=== PATIENT | female | born 1970 | race Caucasian/White ===

== ENCOUNTER 2016-08-04 06:18 | Day surgery (SDC) | payer BC ==
[~2016-08-04] VITALS: Ht 165.1 cm; Wt 65.8 kg
[~2016-08-04 06:18] MED LIST: BENICAR20 MG PO; CARAFATE1 G PO; CELEXA10 MG PO; CELEXA40 MG PO; CIPRO500 MG PO; COZAAR100 MG PO; CYCLOBENZAPRINE10 MG PO; DYAZIDE 37.5/251 CAP PO; HYDROCHLOROTHIA25 MG GT; HYDROCODONE-APA1 TAB PO; ISOSORBIDE DINI30 MG PO; KLOR-CON 1010 MEQ PO; PRAVASTATIN SOD10 MG PO; PROAIR HFA8.5 GM INH; PROTONIX40 MG PO; SKELAXIN800 MG PO; SPRINTEC1 TAB PO; TRIAMTERENE-HCT1 TA1 PO; VALIUM10 MG PO; XANAX1 MG PO; ZANTAC150 MG PO
[2016-08-04 07:28] LABS: HEMATOCRIT 47.3 % (36.0-48.0); HEMOGLOBIN 16.1 g/dL (12-16); MCH 33.6 pg (26.0-34.0); MCV 98.7 fL (80.0-100.0); MEAN PLATELET VOLUME 11.2 fL (7.4-10.4); RBC 4.79 10x6/uL (4.00-5.40); WBC 10.2 10x3/uL (4.8-10.8)
[2016-08-04 07:37] LABS: CALCIUM 9.1 mg/dL (8.5-10.1); CARBON DIOXIDE 28.2 mmol/L (21.0-32.0); CREATININE - SERUM 0.9 mg/dL (0.6-1.3); POTASSIUM - SERUM 3.2 mmol/L (3.5-5.1)
[2016-08-04 07:54] VITALS: BP 92/65; Ht 165.1 cm; Wt 65.8 kg
--- NOTE | 2016-08-04 12:39 | NUR ---
THE PATIENT IS SLURRING SPEECH WHEN AWAKENED
--- NOTE | 2016-09-08 10:18 | HP ---
PATIENT: OMI ELIAS MEDICAL RECORD: [id number] ACCOUNT: [id number] LOCATION:[facility] : 68 ADMISSION DATE: 08/04/16 HISTORY AND PHYSICAL EXAMINATION PREOPERATIVE DIAGNOSIS: Biliary dyskinesia. I am going to plan for laparoscopic cholecystectomy, intraoperative cholangiography with possible liver biopsy. The risks, possible complications and alternatives to the procedure were explained to the patient. She elects to proceed. PAST MEDICAL HISTORY AND PAST SURGICAL HISTORY: Tubal ligation, hysterectomy, appendectomy, bilateral carpal tunnel releases, gastroesophageal reflux which is controlled with medications, hypertension, and asthma. SOCIAL HISTORY: She is a smoker. I have advised her to quit smoking. ALLERGIES: MORPHINE, PENICILLIN, CIPRO, AND SULFA. HOME MEDICATIONS: [place], ProAir, Celexa, Valium, Cozaar, Protonix, potassium, Pravachol, Zantac, Carafate, and Maxzide. REVIEW OF SYSTEMS: As described above, otherwise negative. PHYSICAL EXAMINATION: GENERAL: The patient does not appear acutely ill. She does not appear chronically ill. VITAL SIGNS: Reviewed. HEAD: External ears appear normal. EYES: Extraocular movements are intact. NECK: Trachea is midline. CHEST: No intercostal retractions. PULMONARY: Nonlabored. No stridor. ABDOMEN: Right upper quadrant tenderness with guarding. No Walters sign. No Rovsing sign. EXTREMITIES: No peripheral cyanosis. INTEGUMENT: No rash, no ulcerations. PSYCHIATRIC: Normal affect. IMPRESSION: Biliary dyskinesia. PLAN: Laparoscopic cholecystectomy, intraoperative cholangiography, possible liver biopsy, possible open procedure. The risks, possible complications and alternatives to procedure were explained to the patient. This included the risk of bleeding requiring an emergency reoperation, infection, common ductal injury as well as an intestinal injury. TRANSINT:[id number] Voice Confirmation ID: [id number] DOCUMENT ID: [id number] HISTORY AND PHYSICAL [id number] OMI ELIAS ROBERT MD at 1018 CC: ROBERTO MARKHAM MD [id number] DICTATION DATE: 08/04/16 1221 VIRTUALIZATION ARCHITECT: 08/04/16 1247 [facility] 08/04/16 [place] [address]
== END 2016-08-04 15:10 | disposition home or self-care (01) ==
LOC: D.OPS 06:18 → D.PAN 08:00 → D.OPS 09:05 → D.PAN 09:05 → D.OPS 15:10
PROVIDERS: Anesthesiology
DX: K82.8 Other specified diseases of gallbladder (principal); K76.0 Fatty (change of) liver, not elsewhere classified; K21.9 Gastro-esophageal reflux disease without esophagitis; I10 Essential (primary) hypertension; J45.909 Unspecified asthma, uncomplicated; F17.200 Nicotine dependence, unspecified, uncomplicated; Z79.891 Long term (current) use of opiate analgesic; Z79.899 Other long term (current) drug therapy; Z88.1 Allergy status to other antibiotic agents; Z88.5 Allergy status to narcotic agent; Z88.0 Allergy status to penicillin; Z88.2 Allergy status to sulfonamides

== ENCOUNTER 2016-11-22 22:52 | Emergency (ER) | payer BC ==
[2016-08-04 07:54] VITALS: BMI 24.1
[2016-11-22 23:12] LABS: BASOPHILS 0.6 % (0-2); EOSINOPHILS 3.4 % (0-7); HEMATOCRIT 46.8 % (36.0-48.0); HEMOGLOBIN 16.3 g/dL (12-16); IMMATURE GRANULOCYTES 0.3 % (0-5); LYMPHOCYTES 43.8 % (15-50); MCH 34.1 pg (26.0-34.0); MCHC 34.8 g/dL (31.0-37.0); MCV 97.9 fL (80.0-100.0); MEAN PLATELET VOLUME 12.5 fL (7.4-10.4); MONOCYTES 4.6 % (2-11); NEUTROPHILS 47.3 % (40-80); PLATELET COUNT 346 10x3/uL (130-400); RBC 4.78 10x6/uL (4.00-5.40); RDW 13.1 % (11.5-14.5); WBC 11.5 10x3/uL (4.8-10.8)
[2016-11-22 23:22] LABS: ALBUMIN 3.3 g/dL (3.4-5.0); ANION GAP 10.5 mmol/L (8-16); BILIRUBIN - TOTAL 0.11 mg/dL (0.2-1.3); CALCIUM 9.1 mg/dL (8.5-10.1); CARBON DIOXIDE 29.7 mmol/L (21.0-32.0); CREATININE - SERUM 1.1 mg/dL (0.6-1.3); PROTEIN - SERUM 7.2 g/dL (6.4-8.2)
[2016-11-22 23:23] LABS: POTASSIUM - SERUM 3.2 mmol/L (3.5-5.1)
== END 2016-11-23 00:35 | disposition home or self-care (01) ==
LOC: D.ER 22:52
PROVIDERS: Emergency Medicine
DX: R53.1 Weakness (principal); E87.6 Hypokalemia; F32.9 Major depressive disorder, single episode, unspecified; M79.7 Fibromyalgia; K21.9 Gastro-esophageal reflux disease without esophagitis; I10 Essential (primary) hypertension; F17.200 Nicotine dependence, unspecified, uncomplicated

== ENCOUNTER 2016-12-09 12:35 | Inpatient (IN) | payer SELFPAY ==
[~2016-12-09] VITALS: Ht 165.1 cm; Wt 65.0 kg
--- NOTE | ~2016-12-09 | HP ---
PATIENT: OMI ELIAS MEDICAL RECORD: [id number] ACCOUNT: [id number] LOCATION:D.MS [id number] : 68 ADMISSION DATE: 12/10/16 HISTORY AND PHYSICAL EXAMINATION CHIEF COMPLAINT: "I need a port." HISTORY OF PRESENT ILLNESS: The patient needs subcutaneous port for vascular access. We discussed right-sided port versus left-sided ports. I am going to try to place on the left side, but the patient has a tattoo over there, I am going to try to avoid the tattoo. If we are unable to place on the left side, then we will proceed with placing on the right side. The patient underwent laparoscopic cholecystectomy and a liver biopsy by me. It revealed hemochromatosis. She has hereditary hemochromatosis and undergoes phlebotomies, which are therapeutic. Peripheral IVs are no longer obtainable. For that reason, I have been asked to place the port. PAST MEDICAL AND SURGICAL HISTORY: Laparoscopic cholecystectomy, tubal ligation, history of hysterectomy, appendectomy, carpal tunnel release, gastroesophageal reflux, hemochromatosis, asthma, hypertension. SOCIAL HISTORY: Smoker. I have advised the patient to quit smoking. ALLERGIES: PENICILLIN, MORPHINE, CIPRO. HOME MEDICATIONS: [place], Albuterol, Celexa, Flexeril, Valium, hydrochlorothiazide, Cozaar, Protonix, Zantac, Phenergan. PHYSICAL EXAMINATION: GENERAL: The patient does not appear acutely ill. She does not appear chronically ill. VITAL SIGNS: Reviewed. HEENT: Face is lewis. NECK: No stridor. Trachea is midline. CHEST: No intercostal retractions. PULMONARY: Nonlabored. No stridor. ABDOMEN: No peritonitis with movement. IMPRESSION: Hemochromatosis, in need of vascular access for phlebotomies, which are therapeutic phlebotomies. PLAN: Subcutaneous port and vascular catheter for venous access, left versus right. TRANSINT:[id number] Voice Confirmation ID: [id number] DOCUMENT ID: [id number] HISTORY AND PHYSICAL [id number] MOI ELIAS ROBERT MD CC: [id number] DICTATION DATE: 12/10/16 1207 EMERGENCY ROOM PHYSICIAN ASSISTANT: 12/10/16 1336 ADM IN [address] [place] [address]
--- NOTE | ~2016-12-09 | OP ---
PATIENT NAME: OMI ELIAS MEDICAL RECORD: [id number] :68 LOCATION:D.MS [id number] ADMISSION DATE:12/10/16 SURGEON: PIERCE PALACIOS MD DATE OF OPERATION: 12/10/2016 PREOPERATIVE DIAGNOSES: 1. Hemochromatosis, in need of IV access for therapeutic phlebotomy. 2. No significant peripheral IV access available. POSTOPERATIVE DIAGNOSES: 1. Hemochromatosis in need of IV access for therapeutic phlebotomy. 2. No significant peripheral IV access available. PROCEDURES: 1. Placement of left infraclavicular PowerPort under fluoroscopic guidance. 2. Immediate surgeon interpretation of the fluoroscopic images. SURGEON: Pierce Palacios MD GLASS BLOWER: None. BLOOD LOSS: Minimal. ANESTHESIA: General. COMPLICATIONS: None. The risks, possible complications and alternatives to the procedure were explained to the patient. She elects to proceed. The discussion specifically included, but was not limited to, bleeding requiring an emergency reoperation, infection, great vessel injury, pneumothorax. No radiologist was present for this procedure. Static fluoroscopic images were obtained and are kept in the PACS system. The surgeon interpretation of the radiographic images is dictated within the body of this operative note. OPERATIVE COURSE: The patient was conveyed to the operating room electively on 12/10/2016. General anesthesia was induced by the anesthesia staff. The left upper chest and left neck were sterilely prepped and draped. A transverse incision was accomplished in the left infraclavicular area above the patient's tattoo. I dissected down to the pectoralis muscle. A subcutaneous pocket was fashioned bluntly in a caudad direction. I then placed the patient in the Trendelenburg position. Under fluoroscopic guidance, I accessed the subclavian vein on the first try in an antegrade fashion. This was visualized under fluoroscopy. The guidewire was advanced. Over the guidewire, the dilator sheath was advanced. The dilator was removed. Through the sheath, the PowerPort catheter was advanced. It was advanced to the cavoatrial junction. The catheter was shortened. It was attached to the PowerPort. The locking device was firmly engaged. I had sutured the port down to the underlying pectoralis fascia with 3-point fixation utilizing 3-0 Prolenes. Further fluoroscopic images were obtained. One was obtained over the mediastinum and it revealed that the tip of the catheter was at the cavoatrial junction. Another fluoroscopic image was obtained over the left shoulder and it revealed there was no apparent kinking or OPERATIVE REPORT [id number] OMI ELIAS twisting of the catheter. There was no radiographic evidence of a complication. I irrigated in the port pocket. The port accessed easily. It flushed easily and aspirated dark, nonpulsatile blood. The subdermis was approximated with interrupted 3-0 Vicryls. The skin was approximated with a running intracuticular 4-0 Vicryl. Benzoin and Steri-Strips were applied. The patient was then extubated and conveyed to post-anesthesia care unit where she was in stable condition. They can begin using her PowerPort immediately. I will see the patient on a p.r.n. basis. TRANSINT:[id number] Voice Confirmation ID: [id number] DOCUMENT ID: [id number] PIERCE PALACIOS MD CC: RENNY WOOD MD, VERO FINNEGAN DO and PHILIP KNOTT MD [id number] DICTATION DATE: 12/10/16 162 WAREHOUSE PRODUCTION WORKER: 12/11/16 0014 DIS IN 12/10/16 [facility] [address] [place] [address]
[2016-12-09 14:22] LABS: BASOPHILS 0.4 % (0-2); EOSINOPHILS 0.4 % (0-7); HEMATOCRIT 54.6 % (36.0-48.0); HEMOGLOBIN 19.4 g/dL (12-16); IMMATURE GRANULOCYTES 0.3 % (0-5); LYMPHOCYTES 16.6 % (15-50); MCH 34.4 pg (26.0-34.0); MCHC 35.5 g/dL (31.0-37.0); MCV 96.8 fL (80.0-100.0); MEAN PLATELET VOLUME 11.5 fL (7.4-10.4); MONOCYTES 3.1 % (2-11); NEUTROPHILS 79.2 % (40-80); PLATELET COUNT 382 10x3/uL (130-400); RBC 5.64 10x6/uL (4.00-5.40); RDW 13.1 % (11.5-14.5); WBC 17.9 10x3/uL (4.8-10.8)
[2016-12-09 14:44] LABS: ANION GAP 14.3 mmol/L (8-16); BILIRUBIN - TOTAL 0.7 mg/dL (0.2-1.3); CALCIUM 10.2 mg/dL (8.5-10.1); CARBON DIOXIDE 28.3 mmol/L (21.0-32.0); CREATININE - SERUM 1.4 mg/dL (0.6-1.3); POTASSIUM - SERUM 3.6 mmol/L (3.5-5.1); PROTEIN - SERUM 8.2 g/dL (6.4-8.2)
[2016-12-09 16:56] LABS: APPEARANCE CLOUDY (CLEAR); BILIRUBIN NEGATIVE (NEGATIVE); COLOR DK YELLOW (YELLOW); GLUCOSE NEGATIVE (NEGATIVE); KETONE NEGATIVE (NEGATIVE); LEUKOCYTE ESTERASE TRACE (NEGATIVE); NITRITE NEGATIVE (NEGATIVE); PROTEIN 1+ mg/dL (NEGATIVE); UROBILINOGEN NORMAL (NORMAL)
[2016-12-09 16:57] LABS: BACTERIA MODERATE /hpf (NONE SEEN); WHITE CELLS - URINE 0-5 /hpf (0-5)
[2016-12-09 16:58] LABS: CALCIUM OXALATE CRYSTALS 0-5 /hpf (NONE SEEN); HYALINE CAST 0-5 /lpf (NONE SEEN); MUCUS <1+ /lpf (NONE SEEN)
[2016-12-09] MEDS ORDERED: HYDROCHLOROTH12.5 M1 PO (21:27)
[2016-12-09] MEDS ORDERED: PHENERGAN25 M1 (21:30)
[2016-12-09] MEDS ORDERED: ACETAMINOPHEN500 M1 PO (21:31)
[2016-12-10] VITALS: BP 147/47; BP 147/76
[2016-12-10 00:46] VITALS: BP 133/90; Ht 165.1 cm; Wt 65.0 kg
[2016-12-10 04:00] VITALS: BP 113/7
--- NOTE | 2016-12-10 07:50 | NUR ---
PT AOX4 RESP EVEN AND NONLABORED PT DENIES NEEDS AT THIS TIME IV TO RIGHT HAND PATENT AND INTACT AT THIS TIME SRX2 BED AT LOWEST SETTING CALL LIGHT WITHIN REACH WILL CONTINUE TO MONITOR
[2016-12-10 08:15] VITALS: BP 103/74
--- NOTE | 2016-12-10 09:14 | NUR ---
Patient Name: OMI ELIAS Admission Status: ER Accout number: [id number] Admission Date: 12-09-2016 : 1970 Admission Diagnosis: Attending: STEVEN Current LOS: 1 Anticipated DC Date: 12-11-2016 Planned Disposition: Home Primary Insurance: UNINSURED DISCOUNT PLAN Discharge Planning Comments: CM MET WITH PATIENT REGARDING D/C NEEDS AND PLANS. PATIENT STATED SHE LIVES WITH HER SPOUSE (NIKITA) AND HE WILL DRIVE HER HOME AT DISCHARGE. PATIENT HAS A RAMP TO ENTER HOME. PATIENT IS INDEPENDENT WITH HER CARE AND HAS NO DME AT HOME. PATIENTS PCP IS DR. MARKHAM AND PHARMACY IS [facility]. PATIENT STATED SHE HAS NOT HAD HOME HEALTH AND DOES NOT NEED IT. CM WILL CONTINUE TO FOLLOW PATIENT WITH D/C NEEDS AND PLANS. PCP DR. MARKHAM PHARMACY IS [facility]- [phone] NIKITA ELIAS (SPOUSE) [phone] Service Plumber: Annette Pino Is the patient Alert and Oriented? Yes 0 * How many steps to enter\exit or inside your home? RAMP 0 * PCP DR. MARKHAM 0 * Pharmacy [facility] 0 * Preadmission Environment Home with Family 0 * ADLs Independent 0 * Equipment None 0 * List name and contact numbers for known caregivers / representatives who currently or will assist patient after discharge: NIKITA ELIAS (SPOUSE) [phone] * Community resources currently utilized None 0 * Additional services required to return to the preadmission environment? Yes 0 * Can the patient safely return to the preadmission environment? Yes 0 * Has this patient been hospitalized within the prior 30 days at any hospital? No 0 Grand Total: 0
[2016-12-10 10:25] LABS: BASOPHILS 0.6 % (0-2); EOSINOPHILS 1.1 % (0-7); IMMATURE GRANULOCYTES 0.2 % (0-5); LYMPHOCYTES 31.2 % (15-50); MCH 33.6 pg (26.0-34.0); MEAN PLATELET VOLUME 11.5 fL (7.4-10.4); MONOCYTES 4.8 % (2-11); NEUTROPHILS 62.1 % (40-80); RDW 13.3 % (11.5-14.5)
[2016-12-10 10:31] LABS: HEMATOCRIT 41.8 % (36.0-48.0); HEMOGLOBIN 14.2 g/dL (12-16); MCV 98.8 fL (80.0-100.0); PLATELET COUNT 305 10x3/uL (130-400); RBC 4.23 10x6/uL (4.00-5.40); WBC 12.7 10x3/uL (4.8-10.8)
[2016-12-10 10:41] LABS: ALKALINE PHOSPHATASE 131 U/L (46-116); BILIRUBIN - TOTAL 0.45 mg/dL (0.2-1.3); CALC OSMOLALITY 275 mosm/kg (275-300); CALCIUM 8.7 mg/dL (8.5-10.1); CARBON DIOXIDE 24.3 mmol/L (21.0-32.0); CHLORIDE - SERUM 108 mmol/L (98-107); GLUCOSE 89 mg/dL (74-106); POTASSIUM - SERUM 3.6 mmol/L (3.5-5.1); SODIUM 140 mmol/L (136-145); UREA NITROGEN 8 mg/dL (7-18)
[2016-12-10 10:43] LABS: ALBUMIN 2.8 g/dL (3.4-5.0); ALT (SGPT) 57 U/L (10-68); CREATININE - SERUM 0.8 mg/dL (0.6-1.3); PROTEIN - SERUM 5.9 g/dL (6.4-8.2); eGFR NON AFRICAN AMERICAN 81 mL/min (90-120)
[2016-12-10] MEDS ORDERED: FLORAJEN3 CAPS460 MG PO (14:51)
[2016-12-10] MEDS ORDERED: BACTRIM DS TABL1 TAB PO (14:51)
--- NOTE | 2016-12-10 21:09 | NUR ---
PATIENT IN BED STATING SHE IS READY TO GO HOME. SHE IS VERY AGITATED AND DEMANDING TO LEAVE NOW. AAOX4. 0 S/S OF DISTRESS. DENIES PAIN. ATTEMPTED TO PAGE DR. WOOD BUT NO CALL BACK. SPOKE WITH DR. ISRAEL TO'S NURSE, WHO OKAYED DC. REMOVED IV TO RIGHT HAND WITH CATHETER TIP INTACT. DISCUSSED DC INSTRUCTIONS WITH PATIENT. PATIENT TAKEN DOWN IN WHEELCHAIR BY PRETZEL TWISTER.
== END 2016-12-10 21:14 | disposition home or self-care (01) | DRG 690 ==
LOC: D.ER 12:35 → D.MS 19:45 → OBSVTIME 19:45 → D.MS 19:45
PROVIDERS: Nurse Practitioner Family; ADMIT Family Medicine
PROC: 0JH63XZ Insertion of Tunneled Vascular Access Device into Chest Subcutaneous Tissue and Fascia, Percutaneous Approach (ICD-10-PCS; principal; 2016-12-10)
PROC: 02HV33Z Insertion of Infusion Device into Superior Vena Cava, Percutaneous Approach (ICD-10-PCS; 2016-12-10)
PROC: B5181ZA Fluoroscopy of Superior Vena Cava using Low Osmolar Contrast, Guidance (ICD-10-PCS; 2016-12-10)
DX: N39.0 Urinary tract infection, site not specified (principal); F17.203 Nicotine dependence unspecified, with withdrawal; N17.9 Acute kidney failure, unspecified; E83.119 Hemochromatosis, unspecified; I10 Essential (primary) hypertension; E78.2 Mixed hyperlipidemia; E87.6 Hypokalemia; F41.8 Other specified anxiety disorders; F32.9 Major depressive disorder, single episode, unspecified; E86.0 Dehydration

== ENCOUNTER → 2016-12-10 05:19 | Day surgery (SDC) | payer SELFPAY ==
[2016-12-10 00:46] VITALS: BMI 23.8
[~2016-12-10 05:19] MED LIST changes: +ACETAMINOPHEN500 M1 PO; +BACTRIM DS TABL1 TAB PO; +FLORAJEN3 CAPS460 MG PO; +HYDROCHLOROTH12.5 M1 PO; +PHENERGAN25 M1
== END | disposition home or self-care (01) ==
LOC: D.OPS 05:19 → D.PAN 10:15 → D.OPS 11:30 → D.PAN 11:30
DX: E83.119 Hemochromatosis, unspecified (principal); K21.9 Gastro-esophageal reflux disease without esophagitis; J45.909 Unspecified asthma, uncomplicated; I10 Essential (primary) hypertension; F17.200 Nicotine dependence, unspecified, uncomplicated; Z88.0 Allergy status to penicillin; Z88.5 Allergy status to narcotic agent; Z88.1 Allergy status to other antibiotic agents

== ENCOUNTER → 2018-02-22 10:04 | Outpatient (CLI) | payer OTHER ==
[2016-12-10 00:46] VITALS: BMI 23.8
== END | disposition home or self-care (01) ==
LOC: D.MRI 02-09 13:30
DX: M54.16 Radiculopathy, lumbar region (principal)

== ENCOUNTER 2018-04-18 06:00 | Day surgery (SDC) | payer OTHER ==
[2018-04-17 11:20] LABS: BASOPHILS 0.5 % (0-2); EOSINOPHILS 2.5 % (0-7); HEMATOCRIT 43.1 % (36.0-48.0); HEMOGLOBIN 15.2 g/dL (12-16); IMMATURE GRANULOCYTES 0.3 % (0-5); LYMPHOCYTES 25.3 % (15-50); MCH 34.2 pg (26.0-34.0); MCHC 35.3 g/dL (31.0-37.0); MCV 97.1 fL (80.0-100.0); MEAN PLATELET VOLUME 10.7 fL (7.4-10.4); NEUTROPHILS 67.4 % (40-80); RBC 4.44 10x6/uL (4.00-5.40); RDW 13.5 % (11.5-14.5); WBC 11.8 10x3/uL (4.8-10.8)
[2018-04-17 11:25] LABS: CALC OSMOLALITY 281 mosm/kg (275-300); CALCIUM 9.2 mg/dL (8.5-10.1); CARBON DIOXIDE 29.9 mmol/L (21.0-32.0); CHLORIDE - SERUM 107 mmol/L (98-107); CREATININE - SERUM 0.8 mg/dL (0.6-1.3); GLUCOSE 98 mg/dL (74-106); POTASSIUM - SERUM 3.9 mmol/L (3.5-5.1); SODIUM 143 mmol/L (136-145); UREA NITROGEN 4 mg/dL (7-18); eGFR NON AFRICAN AMERICAN 81 mL/min (90-120)
[2018-04-17 12:16] LABS: PLATELET COUNT 379 10x3/uL (130-400)
[~2018-04-18] VITALS: Ht 165.1 cm; Wt 64.9 kg
--- NOTE | ~2018-04-18 | OP ---
PATIENT NAME: OMI ELIAS MEDICAL RECORD: [id number] :68 LOCATION:D.OPS ADMISSION DATE: SURGEON: PIERCE PALACIOS MD DATE OF OPERATION: 04/18/2018 PREOPERATIVE DIAGNOSES: Malfunctioning left infraclavicular PowerPort in that it will not withdrawal and the patient requires phlebotomy due to hemochromatosis. POSTOPERATIVE DIAGNOSES: Malfunctioning left infraclavicular PowerPort in that it will not withdrawal and the patient requires phlebotomy due to hemochromatosis. PROCEDURE: 1. Removal of left infraclavicular PowerPort. 2. Placement of new left infraclavicular PowerPort under fluoroscopic guidance. 3. Immediate surgeon interpretation of fluoroscopic images. SURGEON: Pierce Palacios MD SPINE SPECIALIST: None. BLOOD LOSS: Minimal. ANESTHESIA: General. COMPLICATIONS: None. The risks, possible complications, and alternatives to the procedure were explained to the patient. She elects to proceed. The discussion specifically included, but was not limited to, bleeding requiring emergency reoperation, infection, the fact that port could flip, it could clot off. No radiologist was present for this procedure. Static fluoroscopic images were obtained and are kept in the patient's chart. The surgeon interpretation of the radiographic images is dictated within the body of this operative note. OPERATIVE COURSE: The patient was kept conveyed to the operating room electively on 04/18/2018. General anesthesia was induced by anesthesia staff. The left chest and left neck were sterilely prepped and draped. I incised through the left infraclavicular scar. I dissected down to the port pocket. The port pocket was incised. I was able to deliver the PowerPort. I cut the catheter to the PowerPort. Through the catheter, I advanced an 0.035 Glidewire. I then removed the catheter over the Glidewire. I then advanced a new Glidewire and this was performed under fluoroscopic guidance. I removed the Glidewire. The catheter had its tip at the cavoatrial junction. I then divided the catheter. It was attached to the PowerPort and the locking device was firmly engaged. The port was then placed in the subcutaneous pocket. It was sutured with 3-point fixation with 3-0 Prolene sutures. This is to prevent the port from flipping. The port flushed easily and aspirated dark, nonpulsatile blood. Additional images were obtained over the apex of the left lung. There was no OPERATIVE REPORT [id number] OMI ELIAS radiographic evidence of complication. No evidence of pneumothorax. No evidence of kinking or twisting of the catheter. Another image was obtained over the mediastinum. It revealed that the PowerPort catheter at its tip at the cavoatrial junction. The port pocket was closed with interrupted 3-0 Vicryls for the deep dermis as well as a running intracuticular 4-0 Vicryl for the skin. Benzoin and Steri-Strips were applied. The patient was then extubated and conveyed to post-anesthesia care unit where she was in stable condition. She will be dismissed home with [place] for pain. I will see her in the office on a p.r.n. basis. There is no need for the patient to follow up with me in the office unless she develops a complication related to this operative procedure. TRANSINT:[id number] Voice Confirmation ID: [id number] DOCUMENT ID: [id number] PIERCE PALACIOS MD at 1008 CC: RENNY WOOD MD and ROBERTO MARKHAM [id number] DICTATION DATE: 04/18/18 1007 RESOURCE ANALYST: 04/18/18 1100 [facility] 04/18/18 [address] [place] [address]
[~2018-04-18 06:00] MED LIST changes: +ABILIFY10 MG PO
[2018-04-18 06:25] VITALS: BP 126/83; Ht 165.1 cm; Wt 64.9 kg
== END 2018-04-18 11:00 | disposition home or self-care (01) ==
LOC: D.OPS 06:00 → D.PAN 08:00 → D.OPS 08:00
PROVIDERS: Anesthesiology
DX: T82.594A Other mechanical complication of infusion catheter, initial encounter (principal); E83.119 Hemochromatosis, unspecified; Z01.812 Encounter for preprocedural laboratory examination

== ENCOUNTER → 2019-01-08 13:45 | Outpatient (CLI) | payer MEDICAID ==
[2018-04-18 06:25] VITALS: BMI 23.8
== END | disposition home or self-care (01) ==
LOC: D.CT 13:45
PROVIDERS: ATTEND Emergency Medicine
DX: M25.552 Pain in left hip (principal)

== ENCOUNTER → 2019-10-03 14:05 | Outpatient (CLI) | payer OTHER ==
[2018-04-18 06:25] VITALS: BMI 23.8
== END | disposition home or self-care (01) ==
LOC: D.US 14:05
PROVIDERS: ATTEND Emergency Medicine
DX: M79.605 Pain in left leg (principal)